=== PATIENT | female | born 1960 | race Caucasian/White ===

== ENCOUNTER 2021-08-16 16:57 | Emergency (ER) | payer OTHER, SELFPAY ==
[2021-08-16 17:09] VITALS: BP 145/66; PULSE 88; RESP 16; TEMP 37.2; O2SAT 98
--- NOTE | 2021-08-16 17:22 | ED.URI ---
HPI - URI/Sore Throat General Chief Complaint: Upper Respiratory Infection Stated Complaint: uri Time Seen by Provider: 08/16/21 17:22 Source: patient and RN notes reviewed Mode of arrival: ambulatory Limitations: no limitations History of Present Illness HPI Narrative: 60-year-old female presented for complaint of hoarse voice for about 5 days. She endorses at the onset she had a sore throat, fevers, chills, headache and pain with swallowing. She states her fever was 101. She is taken to a negative COVID test at home, one today. Endorses postnasal drainage. She denies shortness of breath, wheezing, nausea, vomiting. She has taken Benadryl and Sudafed as needed. Denies sick contacts. MD elicited complaint: cough Related Data Allergies Allergy/AdvReac Type Severity Reaction Status Date / Time No Known Allergies Allergy Verified 08/16/21 17:26 Review of Systems Review of Systems: ROS negative except as in HPI Exam Narrative: GENERAL: Well-appearing EYES: conjunctivae clear ENT: Mucous membranes moist. TM pearly moody with normal light reflex bilaterally; no tragal tenderness. Oropharynx erythematous without lesions or exudate, no drooling, no hoarseness, no trismus, uvula midline. Hoarse voice, No tripod positioning, muffled voice, soft palate or pharyngeal wall bulging CHEST: Clear to auscultation, breath sounds equal. HEART: Regular rate and rhythm. No murmur heard. SKIN: Warm, dry, no rash. NEURO: Alert and oriented x3. PSYCH: Normal mood and affect Course Course Emergency Course: Patient is aware of diagnosis, understands and agrees to treatment plan. Anticipatory guidance given. Patient agrees to follow-up as directed and is aware of reasons to seek care at the emergency department. Portions of this record may have been created with voice recognition software Level of Care: Express Care Visit Vital Signs Vital signs: Vital Signs Temperature 99.0 F 08/16/21 17:09 Pulse Rate 88 08/16/21 17:09 Respiratory Rate 16 08/16/21 17:09 Blood Pressure 145/66 H 08/16/21 17:09 Pulse Oximetry 98 08/16/21 17:09 Oxygen Delivery Room Air 08/16/21 17:09 Temperature 99.0 F 08/16/21 17:09 Pulse Rate 88 08/16/21 17:09 Respiratory Rate 16 08/16/21 17:09 Blood Pressure 145/66 H 08/16/21 17:09 Pulse Oximetry 98 08/16/21 17:09 Oxygen Delivery Room Air 08/16/21 17:09 reviewed MDM - URI/Sore Throat MDM Narrative Medical decision making narrative: Strep test negative. Advised supportive measures and signs/symptoms to go to the ER. Pt is appropriate for outpt treatment and f/u. Differential Diagnosis Differential diagnosis: Likely upper respiratory infection, sinusitis and viral infection Lab Data Labs: Strep Screen Presumptive Negative *(Reference Range: Negative)* Discharge Plan Discharge Clinical Impression: Laryngitis Upper respiratory infection Qualifiers: URI type: unspecified URI Qualified Code(s): J06.9 - Acute upper respiratory infection, unspecified Patient Disposition: Home, Self-Care Condition: Stable Additional Instructions: Rapid strep swab was negative today You will be notified in a few days if the culture comes back positive for strep, and appropriate antibiotics will be called in at that time. if symptoms are due to a viral illness, it is not treated with antibiotics. Viral symptoms can be present for up to 10-14 days. Recommend Flonase spray and Zyrtec for sinus congestion/drainage Cough syrup may cause drowsiness; avoid driving or take it at night time. Tylenol 1000mg every 8 hours as needed for pain/fever Soft foods, cool liquids, warm tea. Gargle with warm saltwater twice a day. Rest and stay hydrated. Steroid as directed --Follow up with your PCP if symptoms are not improving, or sooner if symptoms are worsening. Go to the ER immediately if you cannot swallow your saliva, troub
== END 2021-08-16 17:45 | disposition home or self-care (01) ==
PROVIDERS: Emergency Provider Nurse Practitioner Family; PCP Physician Assistant
DX: J04.0 Acute laryngitis (principal); J06.9 Acute upper respiratory infection, unspecified
CPT/HCPCS: 87081; 87880; 99213; G0463